=== PATIENT | female | born 1950 | race Caucasian/White ===

== ENCOUNTER 2021-02-23 11:27 | Emergency (ER) | payer MEDICARE, OTHER ==
[~2021-02-23] VITALS: Ht 165 cm; Wt 72.0 kg
--- NOTE | 2021-02-23 11:41 | ED Headache ---
General Stated Complaint: HEADACHE Source: patient, EMS Exam Limitations: no limitations History of Present Illness Date Seen by Provider: Feb 23, 2021 Time Seen by Provider: 11:32 Initial Comments 70-year-old female with past medical history of diabetes, hypertension, hyperlipidemia coming in due to headache. Is not uncommon for her to get migraines, typically every several weeks to every month. Does not need any medications for them. Had a migraine last Tuesday with some vomiting. This then went away and it came back on Tuesday. Went away on Tuesday. Woke up this morning and had bent over to brush her teeth, acute pain started in the posterior aspect of her head that was sharp and throbbing. Very severe and worsening over time. Nothing seems to make it better or worse. Typically her migraines are in the front of her head. The headache that started this morning was a couple of hours ago. Denies any fever or neck stiffness. Allergies and Home Medications Allergies Coded Allergies: ibuprofen (Verified Allergy, Mild, 02/23/21) hives iodine (Verified Allergy, Mild, 02/23/21) hives Sulfa (Sulfonamide Antibiotics) (Verified Allergy, Unknown, 02/23/21) Patient Home Medication List Home Medication List Reviewed: Yes Review of Systems Review of Systems Constitutional: No chills, No fever Eyes: Denies Blurred Vision Ears, Nose, Mouth, Throat: no symptoms reported Respiratory: No cough, No short of breath Cardiovascular: No chest pain Gastrointestinal: No abdominal pain, No diarrhea : No Musculoskeletal: no symptoms reported Skin: no symptoms reported Psychiatric/Neurological: No Symptoms Reported All Other Systems Reviewed Negative Unless Noted: Yes Past Nuxhast-Ccutvw-Wjumrp Hx Patient Social History Tobacco Use?: No Alcohol Use?: Yes Alcohol Frequency: Rarely Past Medical History Surgeries: Yes Hysterectomy, Orthopedic (cervical fusion and lower back surgery) Physical Exam Vital Signs Vital Signs - First Documented 02/23/21 11:27 Temp 36.4 Pulse 90 Resp 16 B/P (MAP) 170/69 (102) Pulse Ox 100 O2 Delivery Room Air Capillary Refill : Height, Weight, BMI Height: '" Weight: lbs. oz. kg; BMI Method: General Appearance: WD/WN, no apparent distress HEENT: PERRL/EOMI, normal ENT inspection, pharynx normal Neck: non-tender, full range of motion, supple, normal inspection Cardiovascular: regular rate, rhythm, no edema Respiratory: chest non-tender, lungs clear, normal breath sounds, no respiratory distress, no accessory muscle use Gastrointestinal: normal bowel sounds, non tender, soft; No distended, No guarding, No rebound Back: normal inspection, no CVA tenderness, no vertebral tenderness Extremities: normal range of motion, non-tender, normal inspection, no pedal edema, no calf tenderness, normal capillary refill Psychiatric: alert, oriented x 3 Crainal Nerves: normal hearing, normal speech, PERRL Coordination/Gait: normal finger to nose, normal gait Motor/Sensory: no motor deficit, no sensory deficit, no pronator drift, other (Normal visual fernandes) Skin: normal color, warm/dry Lymphatic: no adenopathy Progress/Results/Core Measures Results/Orders My Orders Orders - JONO GUZMAN MD Ct Head Wo (02/23/21 11:41) Prochlorperazine Injection (Compazine In (02/23/21 11:45) Diphenhydramine Injection (Benadryl Inje (02/23/21 11:45) Lactated Ringers (Lr 1000 Ml Iv Solution (02/23/21 11:45) Prochlorperazine Injection (Compazine In (02/23/21 12:15) Diphenhydramine Injection (Benadryl Inje (02/23/21 12:15) Acetaminophen Tablet (Tylenol Tablet) (02/23/21 12:15) Ketorolac Injection (Toradol Injection) (02/23/21 13:15) Dexamethasone Injection (Decadron Injec (02/23/21 13:15) Medications Given in ED Current Medications Medications Dose Ordered Sig/Ruddy Route Start Time Stop Time Status Last Admin Dose Admin Acetaminophen 1,000 mg ONCE ONCE PO 02/23/21 12:15 02/23/21 12:16 DC 02/23/21 12:26 1,000 MG Dexamethasone Sodium Phosphate 10 mg ONCE ONCE IM 02/23/21 13:15 02/23/21 13:16 DC 02/23/21 13:24 10 MG Diphenhydramine HCl 25 mg ONCE ONCE IM 02/23/21 12:15 02/23/21 12:16 DC 02/23/21 12:25 25 MG Diphenhydramine HCl 25 mg ONCE ONCE IV 02/23/21 11:45 02/23/21 11:46 DC 02/23/21 11:47 25 MG Ketorolac Tromethamine 15 mg ONCE ONCE IM 02/23/21 13:15 02/23/21 13:16 DC 02/23/21 13:24 15 MG Prochlorperazine Edisylate 5 mg ONCE ONCE IM 02/23/21 12:15 02/23/21 12:16 DC 02/23/21 12:25 5 MG Prochlorperazine Edisylate 10 mg ONCE ONCE IV 02/23/21 11:45 02/23/21 11:46 DC 02/23/21 11:46 10 MG Vital Signs/I&O 02/23/21 11:27 Temp 36.4 Pulse 90 Resp 16 B/P (MAP) 170/69 (102) Pulse Ox 100 O2 Delivery Room Air Progress Progress Note : Progress Note 70-year-old female with above history coming in due to headache posteriorly and anteriorly. ABCs were intact, vital stable, GCS 15, and neuro exam is normal. She has not had any trauma. It is not unusual for her to get headaches, but t his 1 is a little bit different, worse, and now in the posterior aspect of her head. Occurred within the past [address] head will be ordered. If this is negative then that will effectively rule out a subarachnoid hemorrhage. She has no fever or meningismus making meningitis very unlikely. Normal visual fernandes and no visual symptoms making idiopathic intracranial hypertension unlikely. CT negative on my interpretation for any large mass or bleed. Given IV fluids, Compazine, and Benadryl, but unfortunately the IV fluids infiltrated. We assessed the wound and applied ice. Then gave IM Toradol given she says her ibuprofen allergy is pretty mild and she tolerates other NSAIDs. She did tolerate this well. Headache improved significantly. She was then discharged home in stable condition with strict return precautions Diagnostic Imaging Diagonstic Imaging: CT Plain Films/CT/US/NM/MRI: head Comments [facility]. [place], [place] NAME: BRINDA HARRELL [facility] REC#: [id number] PT STATUS: REG ER : 1950 PHYSICIAN: JONO GUZMAN MD ADMIT DATE: 10/04/21/ER FS Draft Date of Exam:02/23/21 CT HEAD WO EXAMINATION: CT head without contrast. TECHNIQUE: Multiple contiguous axial images were obtained through the brain without the use of intravenous contrast. All CT scans use one or more of the following dose optimizing techniques: Automated exposure control, MA and/or KvP adjustment based on patient size and exam type or iterative reconstruction. HISTORY: Worst headache of life. Posterior head pain. COMPARISON: None available. FINDINGS: No large acute territorial ischemia, mass, or hemorrhage. No midline shift or mass effect. The ventricles, cortical sulci, and basilar cisterns are patent and unremarkable. The orbits are normal. Paranasal sinuses are normal. Mastoid air cells are clear. No soft tissue abnormality is seen. No osseous lesions or fractures are seen. IMPRESSION: 1. No large acute territorial ischemia, mass, or hemorrhage. Dictated on workstation # [id number] Dict: 02/23/21 1205 Trans: 02/23/21 1207 [id number] Interpreted by: TIERRA RENTERIA DO Electronically signed by: Departure Impression Primary Impression: Headache Qualified Codes: R51.9 - Headache, unspecified Disposition: 01 HOME, SELF-CARE Condition: Stable Departure-Patient Inst. Patient Instructions: Headache, Adult (DC) Add. Discharge Instructions: If you begin having a fever, weakness on one side of your body, numbness on 1 side of your body or any other concerns then come back to the ER. If you develop cough or any other symptoms that you may also have Covid and may need to be tested. JONO GUZMAN MD Feb 23, 2021 11:41
--- OUTSIDE RECORDS SUMMARY | 2021-02-23 11:43 | XMS REPORT | Encounter Summary ---
Author Author [facility] Organization [facility] Address Unknown Phone Unavailable Care Team Providers Care Lockstitch Coat Joiner Name Role Phone Toña Jalloh MD PCP [phone] Encounter Details Care Team Description Date Type Department Viktoriya Canas, PharmD 01/12/2021 Medication [facility] Primar y Care Management - [email or web address] [address] [place] [address] Social History Date Tobacco Use Types Packs/Day Years Used Quit: 05/23/2002 Former Smoker Smokeless Tobacco: Never Used Comments Alcohol Use Standard Drinks/Week No 0 (1 standard drink = 0.6 o z pure alcohol) Sex Assigned at Date Recorded Female 12/10/2018 7:43 AM CDT documented as of this encounter Progress Notes * Viktoriya Canas, PharmD - 01/12/2021 1:58 PM CDT Pharmacist Medication Management Note Assessment/Plan Diabetes: Based on age and comorbidities, target A1c <7%.Diabetes is currently uncontrolled based on on most recent A1c of 7.2%.She has been checking her BG twice daily and her readings are FBG 120s-130s, 2hr PP 88-146. Reviewed target glucose, FBG 80-120, pre-meal <130, and 2 hr PP <180. She has stopped glipizide and Actos, she's been on Trulicity 0.75mg weekly x6 weeks now and tolerating. Discussed increasing Jardiance and/or Trulicity but she'd like to wait for her labs in February. Medications: ? Continue: Trulicity 0.75 mg weekly- via [facility] PAP Jardiance 10 mg daily-[facility] metformin 1,000 mg BID Self-Monitoring: ? Recommend to check BG daily with some FBG and some PP readings Lifestyle: ? Recommend to continue current activity of walking Next A1c due: ? 01/2021 Follow-Up: Clinical pharmacy to follow up with patient in 4-6 weeks via phone call or in-pe rson visit. Time spent with patient: 10 min. Viktoriya Canas PharmD, BCACP Clinical Pharmacist Subjective/Objective Patient was called today to follow up on diabetes management. Diabetes: Lab Results Component Value Date HGBA1C 7.2 (A) 10/23/2020 HGBA1C 6.8 (H) 07/01/2020 HGBA1C 7.2 (H) 02/25/2020 HGBA1C 7.1 (H) 04/04/2013 HGBA1C 7.3 (H) 12/28/2012 HGBA1C 6.8 (H) 09/28/2012 Current diabetes medications: Trulicity 0.75 mg weekly- via [facility] PAP Jardiance 10 mg daily-[facility] metformin 1,000 mg BID Home blood sugar readings (mg/dL): FBG Bedtime 120 108 125 88 137 102 146 Signs/symptoms of hypoglycemia: N Is patient aware of hypoglycemia management: Y Adherence: Patient has difficulty taking their medications as prescribed. Potent ial obstacles to adherence include cost. Patient using PAP to assist with adhere nce. Health Maintenance Due Topic Date Due COVID-19 Vaccine (1) Never done Zoster Vaccine# (1 of 2) Never done Diabetes Mellitus Ophthalmology Exam 11/12/2019 Osteoporosis Screening 02/01/2021 documented in this encounter Plan of Treatment Care Team Description Date Type Specialty Toña Jalloh MD [address] [place] [address] [phone] 03/10/2021 Office Visit Primary Care Toña Jalloh MD [address] [place] [address] [phone] 07/13/2021 Office Visit Primary Care documented as of this encounter Visit Diagnoses Not on filedocumented in this encounter
--- OUTSIDE RECORDS SUMMARY | 2021-02-23 11:43 | XMS REPORT | Clinical Summary ---
Author Author [facility] Organization [facility] Address Unknown Phone Unavailable Care Team Providers Care System Administration Advisor Name Role Phone Toña Jalloh MD PCP [phone] Allergies Comments Active Allergy Reactions Severity Noted Date Ibuprofen Hives 01/30/2015 Sulfa (Sulfonamide Hives 01/30/2015 Antibiotics) Medications End Date Status Medication Sig Dispensed Refills Start Date Active omega-3 fatty acids-fish Take 2 0 oil (FISH OIL) 300-1,000 capsules by mg capIndications: Other mouth. and unspecified hyperlipidemia Active therapeutic multivitamin Take 1 tablet 0 (THERAGRAN) tablet by mouth daily. Active aspirin 81 MG EC tablet Take 81 mg by 0 mouth daily. Active TURMERIC ROOT EXTRACT Take 2 0 ORAL tablets by mouth daily. Active cholecalciferol, vitamin Take 1,000 0 D3, 1,000 units(25 mcg) Units by tablet mouth daily. Active magnesium L-lactate Take 84 mg by 0 (MAGTAB) 84 mg TbER mouth daily. Active calcium citrate Take 1 tablet 0 (CALCITRATE) 200 mg (950 by mouth mg) tablet daily. Active ferrous sulfate 325 (65 Take 325 mg 0 FE) MG tablet by mouth daily with breakfast. Active cyanocobalamin (VITAMIN Take 100 mcg 0 B-12) 100 MCG tablet by mouth daily. Active pravastatin (PRAVACHOL) Take 1 tablet 90 tablet 3 40 MG tabletIndications: (40 mg total) 1 Hyperlipidemia, by mouth unspecified daily. hyperlipidemia type Active metformin (GLUCOPHAGE) Take 1 tablet 180 tablet 3 0 1000 mg (1,000 mg 1 tabletIndications: Type 2 total) by diabetes mellitus without mouth 2 (two) complication, without times a day long-term current use of with meals. insulin (HCC) Active lisinopriL-hydrochlorothi Take 1 tablet 90 tablet 3 azide by mouth 1 (PRINZIDE,ZESTORETIC) daily. 20-12.5 mg per tabletIndications: Essential hypertension Active estradioL (ESTRACE) 1 MG Take 1 tablet 90 tablet 3 tabletIndications: (1 mg total) 1 Postmenopausal by mouth daily. Active empagliflozin (JARDIANCE) Take 1 tablet 90 tablet 3 10 mg tabletIndications: (10 mg total) 1 type 2 diabetes mellitus by mouth daily. Active dulaglutide (TRULICITY) Inject 0.5 mL 4 Pre-filled 3 0.75 mg/0.5 mL pen (0.75 mg Pen Syringe 1 total) under the skin every 7 (seven) days. Active Problems Problem Noted Date GEORGE (nonalcoholic steatohepatitis) 12/03/2016 Hepatomegaly 06/23/2016 Elevated liver enzymes 06/16/2016 Vasomotor symptoms due to menopause 06/09/2016 Anemia 01/04/2014 Overview: Formatting of this note might be differ ent from the original. ICD-10 conversion Benign essential hypertension 06/20/2008 Hyperlipidemia 06/20/2008 Overview: Formatting of this note might be differ ent from the original. ICD10 Type 2 diabetes mellitus without complications 06/20 Overview: Formatting of this note might be differ ent from the original. ICD-10 conversion Encounters Care Team Description Date Type Specialty Viktoriya Canas, [place] 01/12/2021 Medication Primary Care Management Viktoriya Canas, [place] Type 2 diabetes mellitus without complic ation, without long-term current use of insulin (HCC) 12/23/2020 Medication Primary Care Management Viktoriya Canas, [place] Type 2 diabetes mellitus without complic ation, without long-term current use of insulin (HCC) 12/15/2020 Medication Primary Care Management Toña Jalloh MD 11/25/2020 Documentation Primary Care Toña Jalloh MD 11/25/2020 Documentation Primary Care from Last 3 Months Immunizations Name Administration Dates Next Due Hepatitis A (adult) 12/03/2016, 10/04/2016, Hepatitis B Vaccine, 10/04/2016, 09/03/2016 Adult Dosage Influenza QIV (IM) 02/27/2020, 03/04/2017 Influenza, seasonal, 03/14/2019, 03/10/2018, 05/2009 injectable, preservatie free (IIV3). 15 = Influenza TIV Pneumococcal Conjugate 07/14/2018 13-Valent Pneumococcal 06/17/2017 Polysaccharide 23-Valent Tdap 03/04/2017 Family History Medical History Relation Name Comments Kidney failure Father Family history of r enal failure; cause of at 88 Other Father Nephrolithiasis; Diabetes Mother Diabetes Mellitus; Diabetes type II Mother Type II Diabetes Me llitus; Hypertension Mother Hypertension; /Tim gn Essential Hypertension; Transient ischemic attack Mother Transient Is chemic Attack; Diabetes type II Paternal Type II Diabetes Me llitus; Grandmother Relation Name Status Comments Father Mother Paternal Grandmother Social History Date Tobacco Use Types Packs/Day Years Used Quit: 05/23/2002 Former Smoker Smokeless Tobacco: Never Used Tobacco Cessation: Counseling Given: No Comments Alcohol Use Standard Drinks/Week No 0 (1 standard drink = 0.6 o z pure alcohol) Sex Assigned at Date Recorded Female 12/10/2018 7:43 AM CDT Last Filed Vital Signs Reading Time Taken Comments Vital Sign 124/74 11/10/2020 9:54 AM CDT Blood Pressure 89 11/10/2020 9:54 AM CDT Pulse 36.2 C (97.1 F) 11/10/2020 9:54 AM CDT Temperature 10 07/02/2020 8:13 AM VIRTUAL RECRUITER Respiratory Rate 98% 11/10/2020 9:54 AM CDT Oxygen Saturation - - Inhaled Oxygen Concentration 72.8 kg (160 lb 9.6 oz) 11/10/2020 9:54 AM CDT Weight 165.1 cm (5' 5") 11/10/2020 9:54 AM CDT Height 26.73 11/10/2020 9:54 AM CDT Body Mass Index Plan of Treatment Care Team Description Date Type Specialty Toña Jalloh MD [address] [place] [address] [phone] 03/10/2021 Office Visit Primary Care Toña Jalloh MD [address] [place] [address] [phone] 07/13/2021 Office Visit Primary Care Health Maintenance Due Date Last Done Comments COVID-19 Vaccine (1) 1962 Zoster Vaccine# (1 of 2) 2002 Advance Directive 2017 Conversation Diabetes Mellitus 11/12/2019 11/11/2018, Ophthalmology Exam 11/11/2017, 10/01/2016, Additional history exists Osteoporosis Screening 02/01/2021 02/02/2016, 02/02/2016 Influenza Vaccine (#1) 2021 02/27/2020, 03/14/2019, 03/10/2018, Additional history exists Diabetes Mellitus 04/24/2021 10/23/2020, Hemoglobin A1C 07/01/2020, 02/25/2020, Additional history exists Mammogram Screening 07/01/2021 07/01/2020, 07/01/2020, 06/04/2019, Additional history exists Diabetes Mellitus Foot 07/02/2021 07/02/2020, Exam 03/14/2019, 03/10/2018, Additional history exists Medicare Annual Wellness 07/02/2021 07/02/2020, 07/02/2020, 07/17/2019, Additional history exists Lipid Screening 10/23/2021 10/23/2020, 07/01/2020, 07/01/2020, Additional history exists Depression Screening 11/10/2021 11/10/2020 PHQ-9 # Fall Risk Assessment # 11/10/2021 11/10/2020, 07/02/2020 Td/Tdap# 03/04/2027 03/04/2017 Colorectal Screening via 03/10/2028 03/10/2018 Colonoscopy (Declined) Advance Directive has Completed 09/14/2014 been filed Patient Needs Advance Completed Directive Hepatitis C Screen Completed 06/09/2016 Pneumococcal Vaccine: 65+ Completed 07/14/2018, Years 06/17/2017 Results Not on filefrom Last 3 Months Insurance Type Payer Benefit Subscriber ID Effective Phone Address Plan / Dates Group Medicare MEDICARE MEDICARE [id number] 2017- [place] PART A B [place], [place] COMMERCIAL-NONCONTRACTED [facility] [id number] COMMERCIAL resent NONCONTRAC [employer] [id number] Personal/F Self 1950 [address] (Home) [place] [address] Personal/F Self 1950 [address] [place] (Home) [place] [address] Advance Directives For more information, please contact: [phone] Patient Board Certified Family Physician Explanation Type Date Recorded Advance Directives and Living Will Power of Catalogue Clerk Health Care 09/14/2014 1:30 AM Directive
[2021-02-23] MEDS ORDERED: LACTATED RINGERS 1,000 ML IV SCH (11:45)
[2021-02-23] MEDS ORDERED: PROCHLORPERAZINE 10 MG/2ML INJ (COMPAZINE) IV ONE (11:45)
[2021-02-23] MEDS ORDERED: diphenhydrAMINE 50 MG/ML INJ (BENADRYL) IV ONE (11:45)
--- NOTE | 2021-02-23 12:08 | Diagnostic Imaging Report ---
EXAMINATION: CT head without contrast. TECHNIQUE: Multiple contiguous axial images were obtained through the brain without the use of intravenous contrast. All CT scans use one or more of the following dose optimizing techniques: Automated exposure control, MA and/or KvP adjustment based on patient size and exam type or iterative reconstruction. HISTORY: Worst headache of life. Posterior head pain. COMPARISON: None available. FINDINGS: No large acute territorial ischemia, mass, or hemorrhage. No midline shift or mass effect. The ventricles, cortical sulci, and basilar cisterns are patent and unremarkable. The orbits are normal. Paranasal sinuses are normal. Mastoid air cells are clear. No soft tissue abnormality is seen. No osseous lesions or fractures are seen. IMPRESSION: 1. No large acute territorial ischemia, mass, or hemorrhage. Dictated by: Dictated on workstation # [id number]
[2021-02-23] MEDS ORDERED: PROCHLORPERAZINE 10 MG/2ML INJ (COMPAZINE) IM ONE (12:15)
[2021-02-23] MEDS ORDERED: ACETAMINOPHEN 500 MG TAB (TYLENOL) PO ONE (12:15)
[2021-02-23] MEDS ORDERED: diphenhydrAMINE 50 MG/ML INJ (BENADRYL) IM ONE (12:15)
[2021-02-23] MEDS ORDERED: KETOROLAC 30 MG/ML VIAL IM ONE (13:15)
[2021-02-23 14:04] VITALS: BP 133/53
== END 2021-02-23 14:04 | disposition home or self-care (01) ==
LOC: ER FS 11:30
DX: R51.9 Headache, unspecified (principal); I10 Essential (primary) hypertension; E11.9 Type 2 diabetes mellitus without complications
CPT/HCPCS: 70450